=== PATIENT | male | born 1965 | race African-American/Black ===

== ENCOUNTER 2019-11-16 23:43 | Emergency (ER) | payer MEDICARE, MEDICAID ==
[~2019-11-16] VITALS: Ht 167.6 cm; Wt 74.0 kg
[~2019-11-16 23:43] MED LIST: SYMBICORT
[2019-11-17] MEDS ORDERED: FAMOTIDINE 20MG/2ML VIAL IV ONE (00:45)
[2019-11-17] MEDS ORDERED: DIPHENHYDRAMINE 50MG/ML VIAL IV ONE (00:45)
[2019-11-17] MEDS ORDERED: DEXAMETHASONE 4MG/ML 1ML VIAL IV ONE (00:45)
[2019-11-17 05:00] VITALS: BP 146/91
== END 2019-11-17 05:42 | disposition home or self-care (01) ==
LOC: ER 23:43
DX: T78.2XXA Anaphylactic shock, unspecified, initial encounter (principal); J45.909 Unspecified asthma, uncomplicated; I10 Essential (primary) hypertension; Z88.0 Allergy status to penicillin; Z91.010 Allergy to peanuts
CPT/HCPCS: 96374; 96375; 99283; J1100; J1200; J3490

== ENCOUNTER → 2021-08-08 | Outpatient (CLI) | payer MEDICARE, MEDICAID | END | disposition home or self-care (01) | LOC: LAB 09:18 | PROVIDERS: ATTEND Podiatrist Foot & Ankle Surgery | DX: Z01.812 Encounter for preprocedural laboratory examination (principal); Z20.822 Contact with and (suspected) exposure to COVID-19 | CPT/HCPCS: 87426 ==